=== PATIENT | male | born 1960 | race Two or more races ===

== ENCOUNTER 2024-12-18 11:33 | Outpatient (AMB) | payer MEDICAID, SELFPAY ==
[2024-12-18 11:45] VITALS: BP 128/77; PULSE 79; RESP 19; TEMP 36.4; O2SAT 95; BMI 35.2
--- NOTE | 2024-12-18 11:45 | ORTHONT_ITS ---
Vital signs 12/18/24 11:45 Height 1.55 m Height Method Stated Weight 84.595 kg Weight Measurement Method Standing Scale BMI 35.2 BP 128/77 Blood Pressure Source Automatic Cuff Blood Pressure Location Left Upper Arm Position Sitting Respiration 19 Pulse 79 Pulse Source Monitor Temp 97.6 F Temp Source Temporal Artery Scan Pulse Oximetry (%) 95 Oxygen Delivery Method Room Air Med/Allergies Allergies & Medications Allergies No Known Allergies Allergy (Verified 12/18/24 11:46) Medication Reconciliation meloxicam 7.5 mg tablet 7.5 mg PO QDAY #45 tabs 12/18/24 [Rx] Exam Exam Patient is in no acute distress and is cooperative with the examination today. Breathing is nonlabored. In no respiratory distress. Patient has no paraspinal tenderness. Spinal deformity cannot be appreciated. The gait of the patient is nonantalgic Bilateral extremities were evaluated and demonstrates sensation intact to light touch. Palpable pedal pulses are present. No significant edema is present. Bilateral knees were examined and the patient has full strength and range of motion.. The left hip was examined. Patient was able to flex to 90 degrees, adduct to 30 degrees, abduct to 40 degrees, internally rotate to 20 degrees, and externally rotate to 20 degrees. Patient has a negative logroll. Stinchfield is negative. The patient is nontender diffusely to touch. The right hip was examined. Patient was able to flex to 90 degrees, adduct to 30 degrees, abduct to 40 degrees, internally rotate to 20 degrees, and externally rotate to 20 degrees. Patient is tender to palpation over the greater trochanter Right hip x-rays demonstrate mild arthritis right hip. Assessment and Plan Problem List (1) Trochanteric bursitis, right hip: Status: Acute Plan: Patient is a 64-year-old male with a benign clinical examination and right hip lateral sided pain. I do think that he has trochanteric bursitis based on clinical examination. We discussed anti-inflammatories, injections, physical therapy. He would like a right hip cortisone injection of his trochanteric bursa today Recommend hip bursa cortisone injection as patient would like to proceed with conservative treatment at this time. The risks and benefits of the procedure were reviewed with the patient and patient gave verbal consent to continue with the procedure. Procedure: performed by Dr. Wheeler Using sterile technique the right hip bursa was thoroughly prepped with alcohol prep, and approximately 1 cc of Kenalog 40 mg/mL and 4 cc of 1% Lidocaine was injected without resistance. The patient tolerated the procedure well. Office Procedures GNS Level of Care Nursing/Assessment Patient Status: Initial/New Patient Nursing Assessment/Reassesment: Medication Reconciliation, Update PMH in EMR and Vital Signs Coordination of Care: Complex Care and Chronic Disease 1-5, Education Complex Pt/Fam, Consent,records obtained, informed consent, 1 Ins Authorization, Lab and Imaging orders, Results/Orders obtained and Staff clarify orders New Patient Charge New Patient Point Assignment: [id number] New Patient Point Charge: FAITH HEALER Level 4 ([id number]) Surgical Proc/IM SQ injection Major Surgical Procedure: Yes (HIP INJECTION) Medication Given Medication Given Medication Given: Yes Documented Dose Given: 4 Route: Infiitration Medication Given Medication Given Medication Given: Yes Documented Dose Given: 1 Route: Infiitration Office Meds Xylocaine 10 mg/mL (1 %) injection solution Performing Provider: Emerson Wheeler MD Performing Location: [facility] Administered by: Emerson Wheeler MD on 12/18/24 11:54 Dose Route Admin Location Dispensed Lot Number Expiration Date [facility] Operation Manager 20 mL Infiltration 20 mL [id number] 02/26/28 83680-917-36 [facility] triamcinolone acetonide 40 mg/mL suspension for injection Performing Provider: Emerson Wheeler MD Performing Location: [facility] Administered by: Emerson Wheeler MD on 12/18/24 11:57 Dose Route Admin Location Dispensed Lot Number Expiration Date [facility] Operation Manager 40 mg intra-articular KNEE 1 mL [id number] 06/27/26 0956-1361-18 [facility] [place] Intake Visit Data Collection New Patient or Established: New Patient (never been to [facility]) Reason for Visit:: RIGHT HIP PAIN PCP or OBGYN visit in last 3 months: Yes Hx Now: No Do You Feel Safe at Home: Yes Authorities Contacted: N/A Questionairres Past Medical History Past Medical History Have you ever been diagnosed with any of the following: Respiratory Problems Smoking: No Smoking Exposure: No Subjective Visit Visit for: new patient and hip (RIGHT) Immunization / Flu Flu Vaccine in the Last 12 Months: No Flu Vaccine Exclusion Criteria: Refused by Patient History of Present Illness Chief complaint: Right lateral hip pain Date of injury / onset of symptoms: 6 MONTHS Patient is a 65-year-old male with bilateral hip pain and pain in the buttocks. This been ongoing for about 6 months. 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
--- NOTE | 2024-12-18 11:47 | XR_ITS ---
Examination: Lumbar spine 3 views Technique one AP lateral coned lateral lower lumbar spine 3 views Exam date and time: December 18, 2024 1205 hours INDICATIONS: Low back pain 6 months radiating down the right hip FINDINGS: Moderate osteopenia Adequate alignment lumbar vertebral bodies Diffuse lumbar disc narrowing, advanced L4-L5, L5-S1 Moderate lumbar spondylosis No spondylolisthesis Advanced narrowing left hip joint Moderate narrowing right hip joint IMPRESSION: Diffuse lumbar degenerative disc disease, advanced L4-L5, L5-S1
== END 2024-12-18 12:01 | disposition home or self-care (01) ==
LOC: HODSRG 11:33
PROVIDERS: PCP Nurse Practitioner; Referring Provider Nurse Practitioner; Supervising Provider Orthopaedic Surgery Adult Reconstructive Orthopaedic Surgery; Visit Provider Orthopaedic Surgery Adult Reconstructive Orthopaedic Surgery
DX: M70.61 Trochanteric bursitis, right hip (principal); M54.50 Low back pain, unspecified
CPT/HCPCS: 20610; 72100; 99204; J3301; J3490; G0463

== ENCOUNTER 2025-03-19 10:32 | Outpatient (AMB) | payer MEDICAID, SELFPAY ==
--- NOTE | 2025-03-19 10:48 | PD.ORTHCLVIS ---
Vital signs 03/19/25 10:49 Height 1.55 m Height Method Measured Weight 81.873 kg Weight Measurement Method Standing Scale BMI 34.0 BP 136/79 H Blood Pressure Source Automatic Cuff Blood Pressure Location Right Upper Arm Position Sitting Respiration 18 Pulse 82 Pulse Source Monitor Temp 97.9 F Temp Source Temporal Artery Scan Pulse Oximetry (%) 92 L Oxygen Delivery Method Room Air Med/Allergies Allergies & Medications Allergies No Known Allergies Allergy (Verified 03/19/25 10:50) Medication Reconciliation meloxicam 7.5 mg tablet 7.5 mg PO QDAY #45 tabs 12/18/24 [Rx Confirmed 03/19/25] Exam Exam Patient is in no acute distress and is cooperative with the examination today. Breathing is nonlabored. In no respiratory distress. Patient has no paraspinal tenderness. Spinal deformity cannot be appreciated. The gait of the patient is nonantalgic Bilateral extremities were evaluated and demonstrates sensation intact to light touch. Palpable pedal pulses are present. No significant edema is present. Bilateral knees were examined and the patient has full strength and range of motion.. The left hip was examined. Patient was able to flex to 90 degrees, adduct to 30 degrees, abduct to 40 degrees, internally rotate to 20 degrees, and externally rotate to 20 degrees. Patient has a negative logroll. Stinchfield is negative. The patient is nontender diffusely to touch. The right hip was examined. Patient was able to flex to 90 degrees, adduct to 30 degrees, abduct to 40 degrees, internally rotate to 20 degrees, and externally rotate to 20 degrees. Patient is tender to palpation over the greater trochanter Right hip x-rays demonstrate mild arthritis right hip. Assessment and Plan Problem List (1) Trochanteric bursitis, right hip: Status: Acute Plan: Patient is a 64-year-old male with a benign clinical examination and right hip lateral sided pain. I do think that he has trochanteric bursitis based on clinical examination. We discussed anti-inflammatories, injections, physical therapy. He would like a right hip cortisone injection of his trochanteric bursa today Recommend hip bursa cortisone injection as patient would like to proceed with conservative treatment at this time. The risks and benefits of the procedure were reviewed with the patient and patient gave verbal consent to continue with the procedure. Procedure: performed by Dr. Wheeler Using sterile technique the right hip bursa was thoroughly prepped with alcohol prep, and approximately 1 cc of Kenalog 40 mg/mL and 4 cc of 1% Lidocaine was injected without resistance. The patient tolerated the procedure well. Office Procedures GNS Level of Care Nursing/Assessment Patient Status: Established Patient Nursing Assessment/Reassesment: Medication Reconciliation, Update PMH in EMR and Vital Signs Coordination of Care: Complex Care and Chronic Disease 1-5, Education Complex Pt/Fam, Consent,records obtained, informed consent, Results/Orders obtained and Staff clarify orders Established Patient Charge Established Patient Point Assignment: 95 Established Patient Point Charge: EP Level 3 (80-115) Surgical Proc/IM SQ injection Major Surgical Procedure: Yes (HIP INJECTION) Medication Given Medication Given Medication Given: Yes Documented Dose Given: 4 Route: Infiitration Medication Given Medication Given Medication Given: Yes Documented Dose Given: 1 Route: Infiitration Office Meds Xylocaine 10 mg/mL (1 %) injection solution Performing Provider: Emerson Wheeler MD Performing Location: [facility] Administered by: Emerson Wheeler MD on 03/19/25 10:50 Dose Route Admin Location Dispensed Lot Number Expiration Date [facility] Batch Mixing Truck Driver 20 mL Infiltration HIP 20 mL [id number] 09/28/28 70715-848-13 [facility] triamcinolone acetonide 40 mg/mL suspension for injection Performing Provider: Emerson Wheeler MD Performing Location: [facility] Administered by: Emerson Wheeler MD on 03/19/25 10:50 Dose Route Admin Location Dispensed Lot Number Expiration Date [facility] Batch Mixing Truck Driver 40 mg intra-articular HIP 1 mL [id number] 09/28/26 99899-998-73 JOE SANDOVAL MA Intake Visit Data Collection New Patient or Established: Established Patient (seen at [facility] within 3 years) Reason for Visit:: RIGHT HIP INJECTION Seen by Clinical Staff ONLY (RN/MA): No Gate Person Required: No PCP or OBGYN visit in last 3 months: Yes Hx Now: No Do You Feel Safe at Home: Yes Authorities Contacted: N/A Questionairres Past Medical History Past Medical History Have you ever been diagnosed with any of the following: Respiratory Problems Smoking: No Smoking Exposure: No Subjective Visit Visit for: follow up visit and hip Immunization / Flu Flu Vaccine in the Last 12 Months: No Flu Vaccine Exclusion Criteria: No Exclusion Criteria History of Present Illness Chief complaint: RIGHT HIP INJECTION Date of injury / onset of symptoms: 6 MONTHS Patient is a 65-year-old male with bilateral hip pain and pain in the buttocks. This been ongoing for about 6 months. He reports it is difficult to lie on his side. He had over 3 months of relief with the last cortisone injection would like another 1 today Personal History Occupation: [employer] BMI Counceling provided: No Pain Pain level (0-10): 5 Pain duration: WITH MOVEMENT Pain location: buttock Pain quality: sharp Pain timing: night and increases with activity Associated signs & symptoms: none Ambulatory data Ambulatory device: none Treatments Number of previous injections: 1 Improvement with previous injections: Yes Number of Physical Therapy sessions: 12 Improvement with PT: No Improvement with NSAIDS: no Review of Systems Review of Systems: All systems negative unless otherwise noted in HPI.
[2025-03-19 10:49] VITALS: BP 136/79; PULSE 82; RESP 18; TEMP 36.6; O2SAT 92; BMI 34.0
== END 2025-03-19 11:02 | disposition home or self-care (01) ==
LOC: HODSRG 10:32
PROVIDERS: PCP Nurse Practitioner; Referring Provider Nurse Practitioner; Supervising Provider Orthopaedic Surgery Adult Reconstructive Orthopaedic Surgery; Visit Provider Orthopaedic Surgery Adult Reconstructive Orthopaedic Surgery
DX: M70.61 Trochanteric bursitis, right hip (principal); M25.551 Pain in right hip
CPT/HCPCS: 20610; 99213; J3301; J3490; G0463

== ENCOUNTER 2025-06-18 11:02 | Outpatient (AMB) | payer MEDICAID, SELFPAY ==
[2025-06-18 11:52] VITALS: BP 158/82; PULSE 74; RESP 18; TEMP 36.6; O2SAT 91; BMI 35.4
--- NOTE | 2025-06-18 11:52 | PD.ORTHCLVIS ---
Vital signs 06/18/25 11:52 Height 1.55 m Height Method Stated Weight 85.049 kg Weight Measurement Method Standing Scale BMI 35.4 BP 158/82 H Blood Pressure Source Automatic Cuff Blood Pressure Location Right Upper Arm Position Sitting Respiration 18 Pulse 74 Pulse Source Monitor Temp 97.9 F Temp Source Temporal Artery Scan Pulse Oximetry (%) 91 L Oxygen Delivery Method Room Air Med/Allergies Allergies & Medications Allergies No Known Allergies Allergy (Verified 06/18/25 11:55) Medication Reconciliation meloxicam 7.5 mg tablet 7.5 mg PO QDAY #45 tabs 12/18/24 [Rx Confirmed 06/18/25] Exam Exam Patient is in no acute distress and is cooperative with the examination today. Breathing is nonlabored. In no respiratory distress. Patient has no paraspinal tenderness. Spinal deformity cannot be appreciated. The gait of the patient is nonantalgic Bilateral extremities were evaluated and demonstrates sensation intact to light touch. Palpable pedal pulses are present. No significant edema is present. Bilateral knees were examined and the patient has full strength and range of motion.. The left hip was examined. Patient was able to flex to 90 degrees, adduct to 30 degrees, abduct to 40 degrees, internally rotate to 20 degrees, and externally rotate to 20 degrees. Patient has a negative logroll. Stinchfield is negative. The patient is nontender diffusely to touch. The right hip was examined. Patient was able to flex to 90 degrees, adduct to 30 degrees, abduct to 40 degrees, internally rotate to 20 degrees, and externally rotate to 20 degrees. Patient is tender to palpation over the greater trochanter Right hip x-rays demonstrate mild arthritis right hip. Assessment and Plan Problem List (1) Trochanteric bursitis, right hip: Status: Acute Plan: Patient is a 64-year-old male with a benign clinical examination and right hip lateral sided pain. I do think that he has trochanteric bursitis based on clinical examination. We discussed anti-inflammatories, injections, physical therapy. He would like a right hip cortisone injection of his trochanteric bursa today Recommend hip bursa cortisone injection as patient would like to proceed with conservative treatment at this time. The risks and benefits of the procedure were reviewed with the patient and patient gave verbal consent to continue with the procedure. Procedure: performed by Dr. Wheeler Using sterile technique the right hip bursa was thoroughly prepped with alcohol prep, and approximately 1 cc of Kenalog 40 mg/mL and 4 cc of 1% Lidocaine was injected without resistance. The patient tolerated the procedure well. Office Procedures GNS Level of Care Nursing/Assessment Patient Status: Established Patient Nursing Assessment/Reassesment: Medication Reconciliation, Update PMH in EMR and Vital Signs Coordination of Care: Complex Care and Chronic Disease 1-5, Education Complex Pt/Fam, Consent,records obtained, informed consent, Results/Orders obtained and Staff clarify orders Established Patient Charge Established Patient Point Assignment: 95 Established Patient Point Charge: EP Level 3 (80-115) Surgical Proc/IM SQ injection Minor Surgical Procedure: Yes Medication Given Medication Given Medication Given: Yes Documented Dose Given: 1 Route: Infiitration Medication Given Medication Given Medication Given: Yes Documented Dose Given: 4 Route: Infiitration Office Meds methylprednisolone acetate 80 mg/mL suspension for injection Performing Provider: Emerson Wheeler MD Performing Location: [facility] Administered by: Emerson Wheeler MD on 06/20/25 11:30 Dose Route Admin Location Dispensed Lot Number Expiration Date Package [facility] Cold Press Operator 80 mg intra-articular HIP 1 mL [id number] 02/25/27 [address]-3 [id number] [employer] ropivacaine (PF) 2 mg/mL (0.2 %) injection solution Performing Provider: Emerson Wheeler MD Performing Location: [facility] Administered by: Emerson Wheeler MD on 06/20/25 15:27 Dose Route Admin Location Dispensed Lot Number Expiration Date Package [facility] NDC Cold Press Operator 20 mL Infiltration HIP 20 mL [id number] 09/28/27 30157-270-90 [id number] [facility] Intake Visit Data Collection New Patient or Established: Established Patient (seen at [facility] within 3 years) Reason for Visit:: HIP INJECTION Seen by Clinical Staff ONLY (RN/MA): No Verbal consent obtained for Telemed visit?: No Music Assistant Required: No PCP or OBGYN visit in last 3 months: Yes Hx Now: No Do You Feel Safe at Home: Yes Authorities Contacted: N/A Questionairres Past Medical History Past Medical History Have you ever been diagnosed with any of the following: Respiratory Problems Smoking: No Smoking Exposure: No Subjective Visit Visit for: hip and injections Immunization / Flu Flu Vaccine in the Last 12 Months: No Flu Vaccine Exclusion Criteria: No Exclusion Criteria History of Present Illness Chief complaint: HIP INJECTION Date of injury / onset of symptoms: 6 MONTHS Patient is a 65-year-old male with bilateral hip pain and pain in the buttocks. This been ongoing for about 6 months. He reports it is difficult to lie on his side. He had over 3 months of relief with the last cortisone injection would like another 1 today Personal History Occupation: COMMISSARY MANAGER Red flag PMH: BMI BMI Counceling provided: Yes Pain Pain level (0-10): 5 Pain duration: ALL DAY Pain location: groin Pain quality: sharp, dull and aching Pain timing: night and increases with activity Associated signs & symptoms: none Ambulatory data Ambulatory device: none Treatments Number of previous injections: 1 Improvement with previous injections: No Number of Physical Therapy sessions: 12 Improvement with PT: No Improvement with NSAIDS: no Review of Systems Review of Systems: All systems negative unless otherwise noted in HPI.
== END 2025-06-18 11:41 | disposition home or self-care (01) ==
PROVIDERS: PCP Nurse Practitioner; Referring Provider Nurse Practitioner; Supervising Provider Orthopaedic Surgery Adult Reconstructive Orthopaedic Surgery; Visit Provider Orthopaedic Surgery Adult Reconstructive Orthopaedic Surgery
DX: M25.551 Pain in right hip (principal); M25.552 Pain in left hip; M16.11 Unilateral primary osteoarthritis, right hip
CPT/HCPCS: 20610; 99213; J1010; J2795; G0463